=== PATIENT | male | born 1990 | race Caucasian/White ===

== ENCOUNTER 2019-11-27 22:33 | Emergency (ER) | payer SELFPAY ==
[2019-11-27 22:37] VITALS: BP 142/83; PULSE 82; RESP 18; TEMP 36.4; O2SAT 96; BMI 21.4
--- NOTE | 2019-11-27 22:50 | W.ED.ABDPA2 ---
HPI - Abdominal Pain General: Chief Complaint: Abdominal Pain Stated Complaint: abd pain Time Seen by Provider: 11/27/19 22:43 History of Present Illness: HPI narrative: 29-year-old male patient comes in today with left-sided abdominal discomfort starting this evening after he ate. Patient reports eaten about an hour prior to beginning of right-sided abdominal pain. Patient thinks that he may be having a kidney stone. Patient denies any flank pain or radiation of pain into the groin or testicle. Patient denies any discharge of urination. Patient does report some change in the way he urinates with discomfort. Patient appears well. Patient appears in mild to no pain. Associated Symptoms: Reports dysuria Review of Systems General: Reports: 10 or more systems reviewed and unremarkable except in HPI and below GI: Reports: abdominal pain : Reports: dysuria PFSH ED PFSH: Social History Smoking and tobacco status: never smoked Alcohol intake: never Physical Exam Const: COMMON NORMALS: no acute distress and patient oriented x3 GENERAL APPEARANCE: cooperative HENMT: COMMON NORMALS: normocephalic and Normal external nose present HEAD & SCALP: normal to inspection and normocephalic NOSE: Normal external nose present Eye: GENERAL EYE: appearance normal, both eyes and all related structures Neck/C-Spine: COMMON NORMALS: full ROM Lymph: LYMPHATIC: no lymphadenopathy noted Chest: COMMONS NORMALS: normal inspection of the chest Resp: COMMON NORMALS: normal respiratory effort EFFORT & INSPECTION: Yes able to speak in complete sentences Cardio: COMMON NORMALS: regular rate and regular rhythm RATE: regular rate RHYTHM: regular rhythm GI: PALPATION: Yes Tenderness to palpation present (GI) Details: RUQ (mild) : COMMON NORMALS: Yes no CVA tenderness BLADDER/KIDNEY EXAM: Yes no CVA tenderness Back/Pelvis: COMMON NORMALS: no CVA tenderness and thoracic and lumbar spine normal to inspection Extremity: COMMON NORMALS: normal to inspection Neuro: COMMON NORMALS: patient oriented x3 and moves all extremities Psych: COMMON NORMALS: mental status grossly normal and cooperative Skin: COMMON NORMALS: no rashes or lesions noted GENERAL SKIN EXAM: no rashes or lesions noted Course Vital Signs: Vital signs: Vital Signs Temperature 97.6 F 11/27/19 22:37 Pulse Rate 75 11/27/19 22:58 Respiratory Rate 15 11/27/19 22:58 Blood Pressure 116/83 11/27/19 23:25 Pulse Oximetry 96 11/27/19 23:25 MDM - Abdominal Pain MDM Narrative: Medical decision making narrative: Patient comes in today for complaints of some right abdominal discomfort. Patient states that he thinks he might have a kidney stones. Patient reports no previous kidney stones. Patient appears well. Patient appears no acute distress. Exam notes some abdominal tenderness in the right abdomen. Bowel sounds are present. Vital signs were normal without any signs of fever. Differential diagnosis includes but not limited to appendicitis, urinary tract infection, renal calculi. CBC and CMP were unremarkable. CT scan of the abdomen pelvis noted a 3 mm stone in the bladder without any significant hydronephrosis or other abnormalities. Reviewed exam with patient recommended follow-up with urology for further discussion regarding prevention and treatment of further kidney stones. Patient reports understanding of care plan and need for follow-up or return to the ER. Lab Data: Labs: Lab Results 11/27/19 11/27/19 11/27/19 Range/Units 23:00 23:07 23:07 WBC 9.1 (4.0-10.0) 10^3/ uL RBC 5.16 (4.1-5.3) 10^6/u L Hgb 15.7 (11.7-16.6) g/dL Hct 47.4 (42.0-52.0) % MCV 91.9 (80-94) fL MCH 30.4 (28.0-34.0) pg MCHC 33.1 (30.0-36.0) g/dL RDW 12.0 L (12.1-15.1) % Plt Count 206 (130-400) 10^3/c mm MPV 11.4 H (7.4-10.4) fL Neut % (Auto) 64.6 % Lymph % (Auto) 21.4 % [place] % (Auto) 11.0 % Eos % (Auto) 2.1 % Baso % (Auto) 0.7 % Neut # (Auto) 5.86 (1.8-7.7) 10^3/u L Lymph # (Auto) 1.9 (0.8-4.8) 10^3/u L [place] # (Auto) 1.0 H (0.2-0.9) 10^3/u L Eos # (Auto) 0.2 (0.0-0.8) 10^3/u L Baso # (Auto) 0.1 (0.0-0.1) 10^3/u L Nucleated RBC % (a uto) 0 % Nucleated RBCs # 0.0 /100WBC Sodium 140 (136-145) mmol/L Potassium 3.5 (3.5-5.1) mmol/L Chloride 103 (98-107) mmol/L Carbon Dioxide 27 (22-29) mmol/L Anion Gap 13.5 (5-19) BUN 14 (6-20) mg/dL Creatinine 0.8 (0.7-1.2) mg/dL GFR Calculation 115.1 (90-130) mL/min Glucose 129 H (65-115) mg/dL Calculated Osmolal ity 288 (285-295) mOsm/k g Calcium 9.8 (8.5-10.5) mg/dL Total Bilirubin 0.4 (0.15-1.2) mg/dL AST 25 (0-40) U/L ALT 20 (0-41) U/L Alkaline Phosphata se 79 (40-130) IU/L Total Protein 7.3 (6.6-8.7) g/dL Albumin 5.0 (3.5-5.2) g/dL Globulin 2.3 (1.3-4.6) g/dL Lipase 23 (13-60) U/L Urine Color Yellow (Yellow) Urine Appearance Clear (CLEAR) Urine pH 5 (5-7) Ur Specific Gravit y 1.020 (1.005-1.030) Urine Protein Neg (Negative) Urine Glucose (UA) Norm (Normal) Urine Ketones Negative (Negative) Urine Blood 3+ H (Negative) Urine Nitrate Negative (Negative) Urine Bilirubin Neg (NEGATIVE) Urine Urobilinogen Norm (Negative) mg/dL Ur Leukocyte Theresa ase Negative (Negative) Urine RBC 25-40 H (0-2) /hpf Urine WBC 0-4 H (0-5) /hpf Ur Squamous Epith Cells 0-4 H (0-5) Amorphous Sediment Not Reportable Urine Bacteria 2+ H (NONE) Urine Mucus 1+ Urine Yeast Trace Discharge Plan Discharge Patient Disposition: Home Clinical Impression: Calculus in bladder Condition: Stable Prescriptions: No Action lidocaine (PF) 10 mg/mL (1 %) solution 10 mg SUBCUT ONCE Qty: 1 RF: 0 No Known Home Medications RF: 0 Discharge Orders: Discharge Order (Routine); Ordered 11/28/19 Ordered By: Jone Abdul Discharge Diet: Usual diet Discharge Activity: Increase activity as tolerated Patient Instructions: Kidney Stones (ED) Activity Restrictions/Additional Instructions: Drink plenty of water. Strain all urine. The stone will look like a speck of dirt. Collect stone in cup. Follow-up with urology for further evaluation and treatment. Return to the ER for return of symptoms or fever. Coding Level of Care Code ED Manufacturing Finance Manager for Gary Fwd Exam Comprehensive
[2019-11-27 22:58] VITALS: BP 116/83; PULSE 75; RESP 15; O2SAT 97
[2019-11-27 23:20] LABS: Basophils # 0.1 10^3/uL (0.0-0.1); Basophils % 0.7 %; Eosinophils # 0.2 10^3/uL (0.0-0.8); Eosinophils % 2.1 %; Hematocrit 47.4 % (42.0-52.0); Hemoglobin 15.7 g/dL (11.7-16.6); Lymphocytes # 1.9 10^3/uL (0.8-4.8); Lymphocytes % 21.4 %; Mean Corpuscular HGB Conc 33.1 g/dL (30.0-36.0); Mean Corpuscular Hemoglobin 30.4 pg (28.0-34.0); Mean Corpuscular Volume 91.9 fL (80-94); Mean Platelet Volume 11.4 fL (7.4-10.4); Neutrophils # 5.86 10^3/uL (1.8-7.7); Neutrophils % 64.6 %; Nucleated Red Blood Cells % 0 %; Platelet Count 206 10^3/cmm (130-400); Red Blood Count 5.16 10^6/uL (4.1-5.3); White Blood Count 9.1 10^3/uL (4.0-10.0)
[2019-11-27 23:25] VITALS: BP 116/83; O2SAT 96
[2019-11-27 23:28] LABS: Add Urine Microscopic? YES; Bilirubin Urine Neg (NEGATIVE); Blood Urine 3+ (Negative); Glucose Urine UA Norm (Normal); Ketones Urine Negative (Negative); Leukocyte Esterase Urine Negative (Negative); Nitrate Urine Negative (Negative); Protein Urine Neg (Negative); Urine Appearance Clear (CLEAR); Urine Color Yellow (Yellow); Urobilinogen Urine Norm (Negative); pH Urine 5 (5-7)
[2019-11-27 23:29] LABS: Alanine Aminotransferase 20 U/L (0-41); Alkaline Phosphatase 79 IU/L (40-130); Anion Gap 13.5 (5-19); Aspartate Amino Transferase 25 U/L (0-40); Blood Urea Nitrogen 14 mg/dL (6-20); Calcium 9.8 mg/dL (8.5-10.5); Carbon Dioxide 27 mmol/L (22-29); Chloride 103 mmol/L (98-107); Globulin 2.3 g/dL (1.3-4.6); Glomerular Filtration Rate 115.1 mL/min (90-130); Glucose 129 mg/dL (65-115); Lipase 23 U/L (13-60); Osmolality Calculated 288 mOsm/kg (285-295); Potassium 3.5 mmol/L (3.5-5.1); Sodium 140 mmol/L (136-145); Total Bilirubin 0.4 mg/dL (0.15-1.2); Total Protein 7.3 g/dL (6.6-8.7)
[2019-11-27 23:30] LABS: Add Urine Culture? Yes; Bacteria Urine 2+; Mucus Urine 1+; RBC Urine 25-40 /hpf (0-2); Squamous Epithelial Cell Urine 0-4 (0-5); WBC Urine 0-4 /hpf (0-5)
--- NOTE | 2019-11-27 23:39 | CTR_ITS ---
PROCEDURE INFORMATION: Exam: CT Abdomen And Pelvis Without Contrast Exam date and time: 11/27/2019 11:40 PM Age: 29 years old Clinical indication: Abdominal pain; Localized; Right; Additional info: Right side abd pain, hematuria TECHNIQUE: Imaging protocol: Computed tomography of the abdomen and pelvis without contrast. Radiation optimization: All CT scans at this facility use at least one of these dose optimization techniques: automated exposure control; mA and/or kV adjustment per patient size (includes targeted exams where dose is matched to clinical indication); or iterative reconstruction. COMPARISON: No relevant prior studies available. RADIATION DOSE METRICS: Total DLP (mGy-cm): 775.04 FINDINGS: Liver: Unremarkable. No mass. Gallbladder and bile ducts: Normal. No calcified stones. No ductal dilation. Pancreas: Normal. No ductal dilation. Spleen: Normal. No splenomegaly. Adrenals: Normal. No mass. Kidneys and ureters: Recently passed right ureterovesical junction stone now residing within the lumen of the urinary bladder at the right ureter orifice measuring under 3 mm. No residual right hydronephrosis or hydroureter. No visible residual right nephrolithiasis. Left kidney normal. 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 Nonobstructive bowel pattern. No visible adynamic or reactive ileus. Appendix: No evidence of appendicitis. Intraperitoneal space: Unremarkable. No free air. No significant fluid collection. Vasculature: Unremarkable. No abdominal aortic aneurysm. Lymph nodes: Unremarkable. No enlarged lymph nodes. Bladder: Unremarkable as visualized. Reproductive: Unremarkable as visualized. Bones/joints: Normal. Soft tissues: Unremarkable. CT/CT kidney stone [id number] IMPRESSION: 1. Recently passed right ureterovesical junction stone now residing within the lumen of the urinary bladder at the right ureter orifice measuring under 3 mm. No residual right hydronephrosis or hydroureter. 2. 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 Radiation Dose CTDIVOL = (mGy): DLP = 775.04 (mGy-cm)
--- NOTE | 2019-11-27 23:44 | PC.NURSE ---
patient taken to CT
[2019-11-27] MEDS: ketorolac 30 mg/mL INJ 15 MG IVP (23:53)
[2019-11-28 00:22] VITALS: BP 124/89; PULSE 79; RESP 14; O2SAT 98
[2019-11-28 00:24] VITALS: BP 122/82; PULSE 74; RESP 15; O2SAT 99
--- NOTE | 2019-11-29 09:16 | PC.SOCIAL ---
Referral received from Dr Jone Abdul in ED for Urology due to kidney stones. Spoke with Gia there and provided referral information. They will review and call patient with appt.
--- NOTE | 2019-12-08 10:19 | DCPLANNER ---
Patient had a follow up appointment scheduled for 11.29.[address] with the office of Dr. Del Rio. Patient did attend the follow up appointment.
== END 2019-11-28 00:28 | disposition home or self-care (01) ==
PROVIDERS: Emergency Provider Nurse Practitioner Family
DX: N21.0 Calculus in bladder (principal)
CPT/HCPCS: 12345; 74176; 80053; 81001; 81003; 83690; 85025; 87086; 96374; 96375; 99283; J1885

== ENCOUNTER 2019-11-29 13:51 | Outpatient (CLI) | payer SELFPAY ==
--- NOTE | 2019-11-29 13:45 | XRR_ITS ---
PROCEDURE INFORMATION: Exam: XR Abdomen, 1 View Exam date and time: 11/29/2019 1:55 PM Age: 29 years old Clinical indication: Bladder stone TECHNIQUE: Imaging protocol: XR of the abdomen. Views: Frontal supine view of the abdomen. 1 View. COMPARISON: CT ABDOMEN/PELVIS 11/27/2019 11:41 PM FINDINGS: Gastrointestinal tract: No dilated gas-filled loops of bowel. Large amount of stool throughout the colon. Intraperitoneal space: There is a calcific density measuring 4 mm x 3 mm in size corresponding to the calcification noted on the recent CT ABDOMEN/PELVIS. This could be due to a calculus in the bladder lumen but also could be at the right ureterovesical junction. Bones/joints: No acute osseous abnormality. XR/XR KUB [id number] IMPRESSION: Bladder calculus versus right ureterovesical junction calculus.
== END 2019-11-29 13:52 | disposition home or self-care (01) ==
LOC: RAD 13:54
PROVIDERS: PCP Nurse Practitioner Family; Visit Provider Nurse Practitioner Family
DX: N21.0 Calculus in bladder (principal)
CPT/HCPCS: 74018; 81001

== ENCOUNTER 2019-12-13 07:52 | Outpatient (CLI) | payer OTHER, SELFPAY ==
--- NOTE | 2019-12-13 07:30 | XRR_ITS ---
PROCEDURE INFORMATION: Exam: XR Abdomen, 1 View Exam date and time: 12/13/2019 8:08 AM Age: 29 years old Clinical indication: Condition or disease; Other: Stones TECHNIQUE: Imaging protocol: XR of the abdomen. Views: Frontal supine view of the abdomen. 1 View. COMPARISON: CR XR KUB [id number] 11/29/2019 1:57 PM FINDINGS: Gastrointestinal tract: There is mildly increased stool noted in the ascending and proximal transverse colon. Intraperitoneal space: Previous right ureterovesical junction calculus no longer identified. Bones/joints: No acute abnormality identified. XR/XR KUB [id number] IMPRESSION: 1. Previous right ureterovesical junction calculus no longer identified. 2. Mild abdominal colonic constipation.
== END 2019-12-13 07:53 | disposition home or self-care (01) ==
PROVIDERS: PCP Nurse Practitioner Family; Visit Provider Urology
DX: N20.1 Calculus of ureter (principal); K59.00 Constipation, unspecified
CPT/HCPCS: 74018; 81001

== ENCOUNTER 2021-03-04 16:16 | Emergency (ER) | payer OTHER, SELFPAY ==
[2021-03-04 16:28] VITALS: BP 138/88; PULSE 88; RESP 16; TEMP 37.1; O2SAT 99; BMI 22.5
[2021-03-04 17:14] LABS: Add Urine Microscopic? NO; Charge for UA Resulting for Rev
[2021-03-04 17:19] LABS: Specific Gravity, Urine 1.005 (1.005-1.030); Urine Appearance Clear (CLEAR); Urine Color Yellow (Yellow); pH Urine 7 (5-7)
[2021-03-04 17:20] LABS: Bilirubin Urine Neg (Negative); Blood Urine Neg (Negative); Glucose Urine UA Norm (Normal); Ketones Urine Negative (Negative); Leukocyte Esterase Urine Negative (Negative); Nitrate Urine Negative (Negative); Protein Urine Neg (Negative); Urobilinogen Urine Norm (Negative)
--- NOTE | 2021-03-04 18:31 | W.ED.ABDPA2 ---
HPI - Abdominal Pain General: Chief Complaint: Abdominal Pain Stated Complaint: L LOWER ABD PAIN Time Seen by Provider: 03/04/21 18:31 History of Present Illness: HPI narrative: 30-year-old male patient comes in today with complaints of left upper quadrant pain going to his low back. Patient reports pain for the last 2 to 3 days. Patient does report the pain has improved today. Patient does have a history of renal calculi. Patient denies any fever, nausea vomiting, blood in vomit or stool. MD elicited complaint: abdominal pain Review of Systems General: Reports: 10 or more systems reviewed and unremarkable except in HPI and below GI: Reports: abdominal pain PFSH ED PFSH: Medical History (Updated 03/04/21 @ 20:20 by SHAVONNE Morrissey) Right ureteral calculus Family History Mother , HEART ATTACK CAD (coronary artery disease) Social History Smoking and tobacco status: never smoked Alcohol intake: current Alcohol intake frequency: holidays/special occasions only Adopted: No Caregiver/support person: No Lives independently: Yes Marital status: Single Current occupational status: employed History of recent travel: No Physical Exam Const: COMMON NORMALS: no acute distress and patient oriented x3 GENERAL APPEARANCE: cooperative HENMT: COMMON NORMALS: normocephalic and Normal external nose present HEAD & SCALP: normal to inspection and normocephalic NOSE: Normal external nose present MOUTH: Normal oral and palatal mucosa present THROAT: posterior oropharynx normal Eye: GENERAL EYE: appearance normal, both eyes and all related structures Neck/C-Spine: COMMON NORMALS: full ROM Lymph: LYMPHATIC: no lymphadenopathy noted Chest: COMMONS NORMALS: normal inspection of the chest Resp: COMMON NORMALS: normal respiratory effort EFFORT & INSPECTION: Yes able to speak in complete sentences Cardio: COMMON NORMALS: regular rate and regular rhythm RATE: regular rate RHYTHM: regular rhythm GI: COMMON NORMALS: non-tender : COMMON NORMALS: Yes no CVA tenderness BLADDER/KIDNEY EXAM: Yes no CVA tenderness Back/Pelvis: COMMON NORMALS: no CVA tenderness THORACIC SPINE/UPPER BACK: Yes normal to inspection LUMBAR SPINE/LOWER BACK: Yes paraspinal muscle tenderness Lumbar paraspinal muscle tenderness: left Extremity: COMMON NORMALS: normal to inspection Neuro: COMMON NORMALS: patient oriented x3 and moves all extremities Psych: COMMON NORMALS: mental status grossly normal and cooperative Skin: COMMON NORMALS: no rashes or lesions noted GENERAL SKIN EXAM: no rashes or lesions noted Course Vital Signs: Vital signs: Vital Signs Temperature 98.8 F 03/04/21 16:28 Pulse Rate 88 03/04/21 16:28 Respiratory Rate 16 03/04/21 16:28 Blood Pressure 138/88 03/04/21 16:28 Pulse Oximetry 99 03/04/21 16:28 MDM - Abdominal Pain MDM Narrative: Medical decision making narrative: 30-year-old male patient comes in today with complaints of left upper quadrant pain. Patient has a history of renal stones was concerned he may have a kidney stone. On exam there was no's CVA tenderness. Abdomen was tender in the left upper quadrant. Bowel sounds are present. Skin was warm and dry. Vital signs are normal. Differential diagnosis includes renal calculi, pancreatitis, gastritis, constipation. Laboratory values were normal. Urine was clear of any blood or other abnormalities. Review of the record did note the patient had a kidney stone back in November and at that time they also noted a duodenal lipoma. Also noted on that exam was a very distended stomach. Repeated the CT of the abdomen today with contrast did not note any acute abnormalities and I did not discuss duodenal lipoma at this time. My review of the CT scan did note a very dilated stomach, when questioned the last time patient eaten it was about 6 hours prior to the exam. I think the patient may have a idiopathic gastroparesis lending to his abdominal discomfort. I will start patient on some Reglan 30 minutes before each meal up to 4 times a day. Patient should follow-up with primary care for further evaluation at which they may want to refer for endoscopy. I reviewed this with patient who agreed to plan. Lab Data: Labs: Lab Results 03/04/21 03/04/21 03/04/21 17:02 19:00 19:00 WBC 5.2 10^3/uL 10^3/ uL (4.0-10.0) RBC 5.12 10^6/uL 10^6 /uL (4.1-5.3) Hgb 15.6 g/dL g/dL (11.7-16.6) Hct 48.1 % % (42.0-52.0) MCV 93.9 fl fl (80-94) MCH 30.5 pg pg (28.0-34.0) MCHC 32.4 g/dL g/dL (30.0-36.0) RDW 12.2 % % (12.1-15.1) Plt Count 187 10^3/cmm 10^3 /cmm (130-400) MPV 11.5 fL H fL (7.4-10.4) Neut % (Auto) 56.1 % % Lymph % (Auto) 29.1 % % [place] % (Auto) 11.7 % % Eos % (Auto) 1.9 % % Baso % (Auto) 1.0 % % Neut # (Auto) 2.94 10^3/uL 10^3 /uL (1.8-7.7) Lymph # (Auto) 1.5 10^3/uL 10^3/ uL (0.8-4.8) [place] # (Auto) 0.6 10^3/uL 10^3/ uL (0.2-0.9) Eos # (Auto) 0.1 10^3/uL 10^3/ uL (0.0-0.8) Baso # (Auto) 0.1 10^3/uL 10^3/ uL (0.0-0.1) Nucleated RBC % (a uto) 0 % % Nucleated RBCs # 0.0 /100WBC /100W BC Sodium 142 mmol/L mmol/L (136-145) Potassium 3.8 mmol/L mmol/L (3.5-5.1) Chloride 104 mmol/L mmol/L (98-107) Carbon Dioxide 30 mmol/L H mmol/ L (22-29) Anion Gap 11.8 (5-19) BUN 11 mg/dL mg/dL (6-20) Creatinine 0.7 mg/dL mg/dL (0.7-1.2) GFR Calculation 133.3 mL/min H mL /min (90-130) Glucose 96 mg/dL mg/dL (65-115) Calculated Osmolal ity 293 mOsm/kg mOsm/ kg (285-295) Calcium 9.4 mg/dL mg/dL (8.5-10.5) Total Bilirubin 0.3 mg/dL mg/dL (0.15-1.2) AST 18 U/L U/L (0-40) ALT 16 U/L U/L (0-41) Alkaline Phosphata se 79 IU/L IU/L (40-130) Total Protein 6.8 g/dL g/dL (6.6-8.7) Albumin 4.5 g/dL g/dL (3.5-5.2) Globulin 2.3 g/dL g/dL (1.3-4.6) Lipase 23 U/L U/L (13-60) Urine Color Yellow (Yellow) Urine Appearance Clear (CLEAR) Urine pH 7 (5-7) Ur Specific Gravit y 1.005 (1.005-1.030) Urine Protein Neg (Negative) Urine Glucose (UA) Norm (Normal) Urine Ketones Negative (Negative) Urine Blood Neg (Negative) Urine Nitrate Negative (Negative) Urine Bilirubin Neg (Negative) Urine Urobilinogen Norm mg/dL mg/dL (Negative) Ur Leukocyte Theresa ase Negative (Negative) Discharge Plan Discharge Patient Disposition: Home Clinical Impression: Nondiabetic gastroparesis, Lipoma of stomach Condition: Stable Prescriptions: New metoclopramide HCl 10 mg tablet 10 mg PO Q6H 7 Days Qty: 28 RF: 0 No Action tamsulosin 0.4 mg capsule 0.4 mg PO .bedtime Qty: 30 RF: 0 hydrocodone-acetaminophen [[place]] 5-325 mg tablet 1 tab PO Q8H PRN (Reason: pain) 3 Days Qty: 9 RF: 0 Discharge Orders: Discharge ED (Routine); Ordered 03/04/21 Ordered By: Jone Abdul Discharge Diet: Usual diet Discharge Activity: Increase activity as tolerated Patient Instructions: Gastroparesis (ED), Opioid Safety Activity Restrictions/Additional Instructions: Take metoclopramide, Reglan, 30 minutes before each meal. Follow-up with primary care in 1 week for recheck. Return to the emergency room for new concerns. Coding Level of Care Code ED Oral Surgeon for Gary Fwkandis Exam Comprehensive
--- NOTE | 2021-03-04 18:41 | CTR_ITS ---
PROCEDURE INFORMATION: Exam: CT Abdomen And Pelvis With Contrast Exam date and time: 03/04/2021 6:41 PM Age: 30 years old Clinical indication: Abdominal pain; Left upper quadrant (luq); Patient HX: C/O luq/flank pain; Additional info: Luq pain to low back, history renal stones TECHNIQUE: Imaging protocol: Computed tomography of the abdomen and pelvis with contrast. Axial, coronal and sagittal reformatted images were created and reviewed. Radiation optimization: All CT scans at this facility use at least one of these dose optimization techniques: automated exposure control; mA and/or kV adjustment per patient size (includes targeted exams where dose is matched to clinical indication); or iterative reconstruction. Contrast material: OMNI 300; Contrast volume: 95 ml; Contrast route: INTRAVENOUS (IV); COMPARISON: CT kidney stone [id number] 11/27/2019 11:41 PM RADIATION DOSE METRICS: Total DLP (mGy-cm): 1111.39 FINDINGS: Liver: Unremarkable. Gallbladder and bile ducts: No radiodense gallstones. No biliary ductal dilatation. Pancreas: Unremarkable. Spleen: Unremarkable. Adrenal glands: Normal. No mass. Kidneys and ureters: No mass. No radiodense calculi. No hydronephrosis. Stomach and bowel: No bowel wall thickening. No obstruction. No pneumatosis. Appendix: Normal. Intraperitoneal space: No free fluid. No organized fluid collection. No free air. 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 No aortic aneurysm. Lymph nodes: No pathologically enlarged lymph nodes. Urinary bladder: Unremarkable as visualized. Reproductive: Unremarkable. Bones/joints: No acute osseous abnormality. Osteopenia. Soft tissues: Unremarkable. CT/CT abdomen pelvis w con* [id number]: 1. No CT evidence of acute intra-abdominal or pelvic pathology. 2. Additional findings, as above. Radiation Dose CTDIVOL = (mGy): DLP = 1111.39 (mGy-cm)
[2021-03-04 19:14] LABS: Basophils # 0.1 10^3/uL (0.0-0.1); Eosinophils # 0.1 10^3/uL (0.0-0.8); Eosinophils % 1.9 %; Hematocrit 48.1 % (42.0-52.0); Hemoglobin 15.6 g/dL (11.7-16.6); Lymphocytes # 1.5 10^3/uL (0.8-4.8); Lymphocytes % 29.1 %; Mean Corpuscular HGB Conc 32.4 g/dL (30.0-36.0); Mean Corpuscular Hemoglobin 30.5 pg (28.0-34.0); Mean Corpuscular Volume 93.9 fl (80-94); Mean Platelet Volume 11.5 fL (7.4-10.4); Monocytes # 0.6 10^3/uL (0.2-0.9); Monocytes % 11.7 %; Neutrophils # 2.94 10^3/uL (1.8-7.7); Neutrophils % 56.1 %; Nucleated Red Blood Cells % 0 %; Platelet Count 187 10^3/cmm (130-400); Red Blood Count 5.12 10^6/uL (4.1-5.3); Red Cell Distribution Width 12.2 % (12.1-15.1); White Blood Count 5.2 10^3/uL (4.0-10.0)
[2021-03-04] MEDS: iohexol 300 mg/mL 100 mL Btl IV (19:28)
[2021-03-04 19:34] LABS: Alanine Aminotransferase 16 U/L (0-41); Albumin Level 4.5 g/dL (3.5-5.2); Alkaline Phosphatase 79 IU/L (40-130); Anion Gap 11.8 (5-19); Aspartate Amino Transferase 18 U/L (0-40); Blood Urea Nitrogen 11 mg/dL (6-20); Calcium 9.4 mg/dL (8.5-10.5); Carbon Dioxide 30 mmol/L (22-29); Chloride 104 mmol/L (98-107); Globulin 2.3 g/dL (1.3-4.6); Glomerular Filtration Rate 133.3 mL/min (90-130); Glucose 96 mg/dL (65-115); Lipase 23 U/L (13-60); Osmolality Calculated 293 mOsm/kg (285-295); Potassium 3.8 mmol/L (3.5-5.1); Sodium 142 mmol/L (136-145); Total Bilirubin 0.3 mg/dL (0.15-1.2); Total Protein 6.8 g/dL (6.6-8.7)
[2021-03-04 20:26] VITALS: RESP 16
--- NOTE | 2021-03-06 15:34 | DCPLANNER ---
global implementation manager had message to speak with patient about getting established with a primary care physician. global implementation manager called phone number [phone], unable to speak with patient at this time, a voicemail was left for patient to return case preparer and liner phone call.
== END 2021-03-04 20:27 | disposition home or self-care (01) ==
PROVIDERS: Emergency Provider Nurse Practitioner Family
DX: K31.84 Gastroparesis (principal); D17.79 Benign lipomatous neoplasm of other sites
CPT/HCPCS: 36415; 74177; 80053; 81003; 83690; 85025; 99281; Q9967